=== PATIENT | male | born 1945 | race Caucasian/White ===

== ENCOUNTER 2021-08-11 14:39 | Emergency (ER) | payer MEDICARE, OTHER ==
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
[2021-08-11 14:51] VITALS: BP 135/79; PULSE 60
[2021-08-11] MEDS ORDERED: Bacitracin/Neomycin/Polymyxin B Oint 0.9 GM U/D Packet TOP ONE (15:19)
[2021-08-11] MEDS ORDERED: Lidocaine 2% with EPINEPHrine 1:200,000 10 ML SDV INJECT ONE ×2 (15:20→15:34)
== END 2021-08-11 15:21 | disposition home or self-care (01) ==
LOC: KA.ED 14:39
DX: S51.812A Laceration without foreign body of left forearm, initial encounter (principal); I25.10 Atherosclerotic heart disease of native coronary artery without angina pectoris; E78.00 Pure hypercholesterolemia, unspecified; I10 Essential (primary) hypertension; I25.2 Old myocardial infarction; J44.9 Chronic obstructive pulmonary disease, unspecified; M19.90 Unspecified osteoarthritis, unspecified site; E66.9 Obesity, unspecified; Z88.0 Allergy status to penicillin; Z88.1 Allergy status to other antibiotic agents; Z79.82 Long term (current) use of aspirin; Z79.899 Other long term (current) drug therapy; W26.0XXA Contact with knife, initial encounter
CPT/HCPCS: 12001; 99282-25; 99283